=== PATIENT | male | born 1975 | race Two or more races ===

== ENCOUNTER 2016-11-22 16:53 | Emergency (ER) | payer OTHER ==
[2016-11-22 16:58] VITALS: TEMP 99.2; BMI 37.8
[2016-11-22 17:21] LABS: LEUKOCYTES/URINE NEG (NEGATIVE); NITRITE/URINE NEG (NEGATIVE); RBC/URINE 0-2 (0-2); URINE OCCULT BLOOD NEG (NEG/TRACE); WBC/URINE 0-2 (0-2)
[2016-11-22] MEDS ORDERED: OXYCODONE HCL 5 MG TABLET PO ONE (17:31)
[2016-11-22] MEDS ORDERED: PREDNISONE 20 MG TAB PO ONE (17:31)
[2016-11-22] MEDS ORDERED: CYCLOBENZAPRINE 10 MG TAB PO ONE (17:31)
--- NOTE | 2016-11-22 17:34 | EDPRACDOC ---
- General Information Chief Complaint: Back Pain Stated Complaint: KIDNEY PAIN Time Seen by Provider: 11/22/16 17:24 Information Source: Patient Mode Of Arrival: Car Home Medications: Home Medications Hydrochlorothiazide 12.5 mg PO DAILY #30 capsule 05/23/16 Propranolol HCl 40 mg PO BID #30 tablet 08/01/16 Cyclobenzaprine HCl [Flexeril] 10 mg PO TID #20 tablet 11/22/16 Hydrocodone Bit/Acetaminophen [Hydrocodon-Acetaminophen 5-325] 1 tab PO Q6H PRN #14 tab 11/22/16 Prednisone [Deltasone] 20 mg PO BID #12 tablet 11/22/16 Allergies/Adverse Reactions: Allergies Allergy/AdvReac Type Severity Reaction Status Date / Time No Known Allergies Allergy Verified 11/22/16 16:55 - History of Present Illness Onset: 2 days HPI: PT PRESENTS TO ED WITH BILATERAL LOWER BACK PAIN THAT STARTED WHILE LAYING ON THE COUCH YESTERDAY. PT DENIES RADIATING PAIN DOWN LEGS OR LOSS OF BOWEL OR BLADDER CONTROL AT THIS TIME. Pain Location: Reports: Left, Lumbar Pain Radiates To: Reports: None Pain Caused By: Reports: Spontaneous Relevant History: Reports: Chronic back pain (DDD SEVERAL YEARS AGO) Pain Severity: Reports: Moderate Pain Quality: Reports: Aching (TIGHTNESS OR SQUEZZING PAIN), Dull, Sharp Worsened By: Reports: Movement, Twisting, Walking Associated Signs and Symptoms: Reports: None ED Past Medical History - History Reviewed Yes Nurses notes reviewed and agree except as marked Travel Outside of [place] in the Last 3 Months?: No - Patient Medical History Cardiac History: Reports: Hypertension, Hypercholesterolemia GI/ History: Reports: Gastroesophageal Reflux Psychological History: Denies: Depression, Substance Use Disorder Systemic History: Denies: Anemia - Family Medical History Reports: Hypertension. Denies: Diabetes, Cancer, Stroke, Cardiac Disorders - Social Medical History Smoking Status: Heavy tobacco smoker (5 or more cigarettes/day or daily pipe/ cigar) Social History: Denies: Substance Use Disorder ETOH: None Substance Abuse: None Lives With: Other Lives In: Home EDM Review of Systems - Review of Systems ROS Negative Except as Marked: Yes All systems reviewed and were negative except as marked Constitutional: No Symptoms Reported. negative: Fever, Chills, Weakness, Fatigue, Loss of Appetite Eyes: No Symptoms Reported. negative: Redness, Blurred Vision, Double Vision, Discharge, Pain, Light Sensitive, Photophobia Ears: No Symptoms Reported. negative: Pain, Hearing Loss, Drainage, Ear Pulling Throat: No Symptoms Reported. negative: Pain, Swelling Nose: No Symptoms Reported. negative: Congestion, Bleeding, Discharge, Injection, Swelling, Deformity, Ecchymosis, Tender, Abrasion, Laceration Mouth: No Symptoms Reported. negative: Pain, Drooling Respiratory: No Symptoms Reported. negative: Cough, Brassy Cough, Barky Cough, Shortness of Breath, Wheezing, Hemoptysis Cardiovascular: No Symptoms Reported. negative: Chest Pain, Palpitations, Syncope, Edema, Orthopnea, PND, Skin Mottling, Cyanosis Gastrointestinal: No Symptoms Reported. negative: Pain, Constipation, Nausea, Vomiting, Diarrhea, Melena, Formula Intolerance Genitourinary: No Symptoms Reported. negative: Dysuria, Hematuria, Frequency, Discharge, Bleeding, Testicular Pain, Neurological: No Symptoms Reported. negative: Headache, Dizziness, Seizure, Numbness, Weakness, Speech Difficulty, Gait Difficulty Musculoskeletal: Back. negative: Arm, Ankle, Chestwall, Elbow, Forearm, Femur, Foot, Hand, Hip, Knee, Leg, Neck, Pelvis, Ribs, Shoulder, Wrist Integumentary: No Symptoms Reported. negative: Itching, Rash, Bruising, Wound Allergic/Immunologic: No Symptoms Reported. negative: Hives, Itching Hematologic: No Symptoms Reported. negative: Lymphadenopathy, Easy Bruising, Easy Bleeding Endocrine: No Symptoms Reported. negative: Weight Gain, Weight Loss Psychiatric: No Symptoms Reported. negative: Anxiety, Depression, Hallucinations, Insomnia, Suicidal - Physical Exam Constitutional: No apparent distress, Alert (Awake) Oriented to: Time, Person, Place Last recorded Vital Signs: Last Vital Signs Temp 99.2 F 11/22/16 16:55 Pulse 113 11/22/16 16:55 Resp 20 11/22/16 16:55 BP 196/102 H 11/22/16 16:55 Pulse Ox 97 11/22/16 16:55 Oxygen Pulse Oxygen Saturation 97 O2 Device Room Air Oxygen Flow Rate Fraction of Inspired Oxygen ( FIO2) - HEENT Head: Normal ( normocephalic) Eye Exam: Normal (PERRL, EOMI, Sclera white) Oropharynx: Normal (Pharynx:Moist without exudate,Gums-no swelling) Tympanic Membrane: Normal ENT EAC: Normal TMJ: Normal Nose: No Symptoms Reported (septum midline) Neck: Normal (FROM, trachea at midline) - Respiratory/Cardiovascular Respiratory: Normal - CTA (BBS clear to auscultation without adventitious sounds ) Cardiovascular: Normal (RRR without murmur, gallop or rub) - GI Auscultation: Normal (NABS) Palpation: Normal (Soft,No rebound or guarding, non distended) Tenderness: Non tender Khoury's Sign: Negative - Bladder: Normal - Musculoskeletal Back: Normal (Non-Tender) Extremities: Normal (Normal tone, Pulses 2+ No cyanosis or edema, FROM) - Integumentary Skin: Normal, Warm, Dry Lymphatics: Normal (no adenopathy) - Neurologic Memory Impaired: Normal Motor Function: Normal (Normal tone, Pulses 2+ No cyanosis or edema, FROM) Cranial Nerve: Normal (CN II-X11 intact sensation, strength 5/5) Cerebellar: Normal Mood Description: Normal Perception: Normal ED Back Exam - Neurologic Motor Deficit: None (strength 5/5, sensation nl) Reflexes: Normal (CN II-X11 intact) - Musculoskeletal Cervical: Normal Thoracic: Normal Lumbar: Tender, Limited ROM Midline: Normal Paraspinous: Tender, Spasm, Limited ROM Straight Leg Raise: Negative Pelvis: Normal - Differential Diagnosis Musculoskeletal pain, Strain - Results Urine Color Yellow 11/22/16 17:01 Urine Clarity Clear 11/22/16 17:01 Urine pH 8.0 (5.0-8.0) 11/22/16 17:01 Ur Specific Alloy 1.005 (1.003-1.035) 11/22/16 17:01 Urine Protein Neg (NEG/TRACE) 11/22/16 17:01 Urine Glucose (UA) Neg (NEGATIVE) 11/22/16 17:01 Urine Ketones Neg (NEGATIVE) 11/22/16 17:01 Urine Occult Blood Neg (NEG/TRACE) 11/22/16 17:01 Urine Nitrite Neg (NEGATIVE) 11/22/16 17:01 Urine Bilirubin Neg (NEGATIVE) 11/22/16 17:01 Urine Urobilinogen <2.0 MG/DL (0-1) 11/22/16 17:01 Ur Leukocyte Esterase Neg (NEGATIVE) 11/22/16 17:01 Urine RBC 0-2 (0-2) 11/22/16 17:01 Urine WBC 0-2 (0-2) 11/22/16 17:01 Ur Epithelial Cells Occ 11/22/16 17:01 Urine Bacteria Few (NEG/FEW) 11/22/16 17:01 Urine Mucus Occ (NEG/OCC) 11/22/16 17:01 Lab Results 11/22/16 17:01 Urine Color Yellow Urine Clarity Clear Urine pH 8.0 Ur Specific Alloy 1.005 Urine Protein Neg Urine Glucose (UA) Neg Urine Ketones Neg Urine Occult Blood Neg Urine Nitrite Neg Urine Bilirubin Neg Urine Urobilinogen <2.0 Ur Leukocyte Esterase Neg Urine RBC 0-2 Urine WBC 0-2 Ur Epithelial Cells Occ Urine Bacteria Few Urine Mucus Occ - Diagnostic Imaging LSPINE Image interpreted by: Radiologist IMPRESSION: Multilevel osteoarthritic changes of the lumbosacral spine, worse at L2-L3 and L3-L4. Decision Time to Discharge: 18:20 - Departure Disposition: Home Condition: Stable Final Diagnosis: Acute low back pain Instructions: Thoracic (Lumbar) Strain, Acute Low Back Pain (ED) Education/Counseling Given To: Patient Education/Counseling Given Regarding: Diagnosis, Treatment, Prognosis, Follow Up Referrals: None,No Provider [Primary Care Provider] - One Week Tino Boalnos MD [Staff Physician] - One Week Prescriptions: Cyclobenzaprine HCl [Flexeril] 10 mg PO TID #20 tablet Hydrocodone Bit/Acetaminophen [Hydrocodon-Acetaminophen 5-325] 1 tab PO Q6H PRN #14 tab PRN Reason: Pain Prednisone [Deltasone] 20 mg PO BID #12 tablet
[2016-11-22 17:39] VITALS: BP 162/103; PULSE 99
[2016-11-22 17:54] LABS: ALL NEG? YES; MDMA* NEG (NEGATIVE); METHAMPHETAMINES NEG (NEGATIVE); OXYCODONE NEG (NEGATIVE)
--- NOTE | 2016-11-22 18:11 | DIRPT ---
CLINICAL DATA: Low back pain for 2 days. No history of injury. EXAM: LUMBAR SPINE - COMPLETE 4+ VIEW COMPARISON: CT of the abdomen pelvis dated 08/23/2013 FINDINGS: There is no evidence of lumbar spine fracture. There is straightening of the expected lordosis. Osteoarthritic changes with disc space narrowing, endplate sclerosis, and anterior osteophytosis is seen at L2-L3 and L3-L4. Mild osteoarthritic changes are seen at the rest of the lumbosacral levels. Metallic shrapnel is seen overlying the right pelvis, chronic finding. Soft tissues otherwise normal. IMPRESSION: Multilevel osteoarthritic changes of the lumbosacral spine, worse at L2-L3 and L3-L4. Electronically Signed By: Adeel Wilhelm M.D. On: 11/22/2016 18:09
== END 2016-11-22 18:26 | disposition home or self-care (01) ==
LOC: EDMC 16:53
DX: M54.5 Low back pain (principal); I10 Essential (primary) hypertension; E78.00 Pure hypercholesterolemia, unspecified; K21.9 Gastro-esophageal reflux disease without esophagitis; F17.200 Nicotine dependence, unspecified, uncomplicated; Z79.899 Other long term (current) drug therapy
CPT/HCPCS: 72110; 80307; 81001; 99283; J3490